=== PATIENT | male | born 2000 ===

== ENCOUNTER 2021-10-08 06:46 | Day surgery (SDC) | payer OTHER | END 2021-10-09 | disposition home or self-care (01) | LOC: CIR.AMB 06:46 | PROVIDERS: ATTEND Orthopaedic Surgery Hand Surgery | DX: S62.614A Displaced fracture of proximal phalanx of right ring finger, initial encounter for closed fracture (principal); Z20.822 Contact with and (suspected) exposure to COVID-19 ==